=== PATIENT | male | born 1960 | race Caucasian/White ===

== ENCOUNTER 2019-12-13 19:05 | Inpatient (IN) | payer OTHER ==
[~2019-12-13] VITALS: Ht 170.2 cm; Wt 75.7 kg
[2019-12-13 19:13] VITALS: BP 128/77
[2019-12-13 20:27] LABS: WBC 6.5 thou/uL (4.0-11.0)
[2019-12-13 20:29] LABS: HEMATOCRIT 46.6 % (42.0-52.0); HEMOGLOBIN 15.3 gm/dL (14.0-18.0); MCH 30.3 pg (26.0-34.0); MCHC 32.8 g/dL (28.0-37.0); MCV 92.3 fL (80.0-100.0); PLATELET COUNT 222 thou/uL (150-400); RBC 5.05 mil/uL (4.50-6.00)
[2019-12-13 20:47] LABS: ABSOLUTE NEUTROPHILS 4.2 thou/uL (1.4-8.2); ATYPICAL LYMPHS 2 %; PLATELET ESTIMATE NORMAL
[2019-12-13 20:49] LABS: CALCIUM 9.1 mg/dL (8.5-10.1); CREATININE 1.2 mg/dL (0.7-1.3)
[2019-12-13 20:55] LABS: ALBUMIN 3.5 g/dL (3.4-5.0); TOTAL BILIRUBIN 1.2 mg/dL (<0.1-1.0); TOTAL PROTEIN 7.4 g/dL (6.4-8.2)
[2019-12-13 21:29] LABS: HCO3 20.7 mmol/L (22.0-26.0); PCO2 30.2 mmHg (35.0-45.0); PO2 60.2 mmHg (80.0-100.0); pH 7.454 (7.360-7.450); sO2 92.6 % (92.0-98.0)
[2019-12-14 01:26] VITALS: BP 103/66
[2019-12-14 01:27] LABS: URINE BILIRUBIN NEGATIVE (Negative); URINE BLOOD NEGATIVE (Negative); URINE CLARITY CLEAR; URINE COLOR YELLOW; URINE GLUCOSE-RANDOM* NEGATIVE (Negative); URINE KETONES 2+ (Negative); URINE LEUKOCYTES NEGATIVE (Negative); URINE NITRITE NEGATIVE (Negative); URINE PROTEIN (DIPSTICK) TRACE (Negative); URINE SPECIFIC GRAVITY 1.015 (1.005-1.035); URINE UROBILINOGEN 0.2 E.U./dl (0.2-1.0)
[2019-12-14 02:05] VITALS: BP 114/69
--- NOTE | 2019-12-14 05:01 | NUR ---
ASSUMED CARE OF PT DURING ADMISSION TO THE UNIT. A&Ox4, COOPERATIVE. VS HAVE BEEN STABLE. OCCASIONALLY TACHYCARDIC. RR HAS BEEN 22 AND BELOW. PRODUCTIVE COUGH. CURRENTLY RESTING, PROGRESSING TOWARDS POC GOALS.
[2019-12-14 05:17] VITALS: BP 112/69
[2019-12-14 05:43] LABS: HEMATOCRIT 44.7 % (42.0-52.0); HEMOGLOBIN 14.4 gm/dL (14.0-18.0); MCHC 32.2 g/dL (28.0-37.0); MCV 93.4 fL (80.0-100.0); RBC 4.79 mil/uL (4.50-6.00); RDW 15.2 % (10.5-14.5)
[2019-12-14 06:14] LABS: ALBUMIN 2.8 g/dL (3.4-5.0); ANION GAP 16 mmol/L (7-16); BUN 11 mg/dL (7-18); CHLORIDE 104 mmol/L (98-107); CO2 16 mmol/L (21-32); CREATININE 0.7 mg/dL (0.7-1.3); GLUCOSE 87 mg/dL (74-106); SGOT < 5 U/L (15-37); SGPT 22 U/L (30-65); SODIUM 136 mmol/L (136-145); TOTAL BILIRUBIN 1.3 mg/dL (<0.1-1.0); TOTAL PROTEIN 6.1 g/dL (6.4-8.2)
[2019-12-14 06:28] LABS: POTASSIUM 5.4 mmol/L (3.5-5.1)
[2019-12-14 06:40] LABS: CALCIUM 7.9 mg/dL (8.5-10.1)
[2019-12-14 07:49] VITALS: BP 108/49
[2019-12-14 15:42] VITALS: BP 123/71
[2019-12-14 19:46] VITALS: BP 113/65
--- NOTE | 2019-12-14 19:49 | NUR ---
ASSUMED CARE OF PT AT APPROX 0700. PT IS ALERT AND ORIENTED X4, MONITORED ON TELE AND ABLE TO MAINTAIN 02 SAT >90 ON RA. DENIES PAIN. SOA WITH ACTIVITY BUT RECOVERS VERY FAST. ASSESSMENT CHARTED. SPUTUM SENT. TYLENOL GIVEN FOR FEVER. PT WORKING TOWARDS POC GOALS. UPDATED ON POC.
[2019-12-15 04:23] VITALS: BP 116/77
--- NOTE | 2019-12-15 05:10 | NUR ---
ASSUMED CARE OF PT AT 1900. A&Ox4, COOPERATIVE. VS STABLE THIS SHIFT, NO ELEVATED TEMP IN VS. SR ON TELE. RA. STILL BECOMES SOA WHEN UP TO THE BR BUT STATED HE IS FEELING BETTER. SPECIMENS SENT TO LAB FOR TESTING ORDERED. TB TEST GIVEN AT 0030 ON L FA, SITE CIRCLED. ABLE TO SLEEP MOST OF SHIFT. PROGRESSING WELL TOWARDS POC GOALS.
[2019-12-15 05:14] LABS: CALCIUM 8.6 mg/dL (8.5-10.1); CREATININE 0.9 mg/dL (0.7-1.3)
[2019-12-15 05:30] LABS: ABSOLUTE NEUTROPHILS 3.6 thou/uL (1.4-8.2); BASOPHILS 0.2 % (0.0-2.0); EOSINOPHILS 0.1 % (0.0-3.0); HEMATOCRIT 42.3 % (42.0-52.0); HEMOGLOBIN 13.7 gm/dL (14.0-18.0); LYMPHOCYTES 10.8 % (24.0-44.0); MCH 29.8 pg (26.0-34.0); MCHC 32.5 g/dL (28.0-37.0); MCV 91.7 fL (80.0-100.0); MONOCYTES 6.7 % (1.0-8.0); PLATELET COUNT 202 thou/uL (150-400); POLYS 82.2 % (36.0-66.0); RBC 4.61 mil/uL (4.50-6.00); RDW 14.8 % (10.5-14.5); WBC 4.4 thou/uL (4.0-11.0)
[2019-12-15 06:01] LABS: POTASSIUM 4.3 mmol/L (3.5-5.1)
[2019-12-15 08:02] VITALS: BP 119/77
[2019-12-15 15:06] VITALS: BP 124/77
--- NOTE | 2019-12-15 15:30 | NUR ---
cm called pt room x 2 today, unable to speak with pt or he not answering the phone in room. during los md stated pt still on o2, needing to found out if this is pt baseline of o2 or if going to wean him off prior to dc home.
[2019-12-15 16:09] LABS: IgA 190 mg/dL (90-386); IgG 941 mg/dL (700-1600); IgM 48 mg/dL (20-172)
[2019-12-15 18:06] LABS: HIV ANTIBODY Non Reactive (Non Reactive)
[2019-12-15 19:29] VITALS: BP 127/75
--- NOTE | 2019-12-15 21:11 | NUR ---
PT WEANED OFF O2 THIS MORNING..DENIES SOA...PROBABLE D/C TOMORROW...
--- NOTE | 2019-12-15 21:48 | NUR ---
PATIENT IS ALERT AND ORIENTED. PATIENT IS UP AD DIXIE. PATIENT SHOWERED INDEPENTELY. PATIENT IS ON ROOM AIR. PATIENT DENIES PAIN. PATIENT IS RESTING COMFORTABLY IN BED. [facility].
[2019-12-15 23:40] VITALS: BP 121/80
[2019-12-16 04:25] VITALS: BP 123/78
[2019-12-16 06:00] LABS: HEMATOCRIT 43.2 % (42.0-52.0); HEMOGLOBIN 13.8 gm/dL (14.0-18.0); MCH 29.6 pg (26.0-34.0); MCV 92.3 fL (80.0-100.0); RBC 4.68 mil/uL (4.50-6.00); RDW 15.1 % (10.5-14.5); WBC 11.7 thou/uL (4.0-11.0)
[2019-12-16 06:15] LABS: CALCIUM 8.4 mg/dL (8.5-10.1); CREATININE 0.8 mg/dL (0.7-1.3); POTASSIUM 3.9 mmol/L (3.5-5.1)
[2019-12-16 08:17] VITALS: BP 126/72
--- NOTE | 2019-12-16 10:21 | NUR ---
Assumed care of pt at 0700. Pt a&ox4. Up ad phylicia. Crackles in bases of lungs. Productive cough with clear sputum. Denies pain. Call light within reach. Will continue to monitor.
[2019-12-16] MEDS ORDERED: OSELTAMIVIR PHO75 MG PO (14:50)
[2019-12-16] MEDS ORDERED: MUCINEX600 MG PO (14:50)
[2019-12-16] MEDS ORDERED: PREDNISONE 10 M10 M1 PO (14:51)
[2019-12-16 15:21] VITALS: BP 126/72
[2019-12-21 16:06] LABS: ADENOVIRUS Negative (Negative); INFLUENZA A Negative (Negative); INFLUENZA B Positive (Negative); METAPNEUMOVIRUS Negative (Negative); PARAINFLUENZA 1 Negative (Negative); PARAINFLUENZA 2 Negative (Negative); PARAINFLUENZA 3 Negative (Negative); RHINOVIRUS Negative (Negative); RSV A Negative (Negative); RSV B Negative (Negative)
== END 2019-12-16 16:56 | disposition home or self-care (01) | DRG 871 ==
LOC: ER 19:05 → 4S 22:06 → 3W 22:06 → EROBS 22:06 → 3W 12-14 02:12 → 4S 12-15 23:35
PROVIDERS: Nurse Practitioner Family; Physician Assistant; Specialist; ADMIT Hospitalist
DX: A41.9 Sepsis, unspecified organism (principal); J18.9 Pneumonia, unspecified organism; J96.01 Acute respiratory failure with hypoxia; J10.00 Influenza due to other identified influenza virus with unspecified type of pneumonia; J30.2 Other seasonal allergic rhinitis; Z87.01 Personal history of pneumonia (recurrent); Z88.0 Allergy status to penicillin; Z83.3 Family history of diabetes mellitus; Z80.0 Family history of malignant neoplasm of digestive organs; Z79.899 Other long term (current) drug therapy; Z28.21 Immunization not carried out because of patient refusal
CPT/HCPCS: 10100; 10195; 10879

== ENCOUNTER → 2019-12-22 | Outpatient (CLI) | payer OTHER ==
[~2019-12-22] MED LIST: MUCINEX600 MG PO; OSELTAMIVIR PHO75 MG PO; PREDNISONE 10 M10 M1 PO
== END ==
LOC: RAD 13:14
DX: R91.8 Other nonspecific abnormal finding of lung field (principal)

== ENCOUNTER → 2020-01-19 | Outpatient (CLI) | payer OTHER | LOC: CAT 09:34 | DX: J47.9 Bronchiectasis, uncomplicated (principal); J84.9 Interstitial pulmonary disease, unspecified; I25.10 Atherosclerotic heart disease of native coronary artery without angina pectoris; J84.10 Pulmonary fibrosis, unspecified; K44.9 Diaphragmatic hernia without obstruction or gangrene ==

== ENCOUNTER → 2020-02-01 | Outpatient (CLI) | payer OTHER | LOC: NUC 09:19 | DX: M85.88 Other specified disorders of bone density and structure, other site (principal); Z92.241 Personal history of systemic steroid therapy ==